=== PATIENT | female | born 1975 | race Caucasian/White ===

== ENCOUNTER 2022-07-25 20:01 | Emergency (ER) | payer SELFPAY ==
[~2022-07-25] VITALS: Ht 162.6 cm; Wt 90.7 kg
[2022-07-25] MEDS ORDERED: METHYLPREDNISOLONE SOD SUCC 125 MG/2ML VIAL IV STA (20:19)
[2022-07-25] MEDS ORDERED: ALBUTEROL/IPRATROPIUM 3 ML NEB NEB STA (20:19)
[2022-07-25] MEDS ORDERED: ALBUTEROL/IPRATROPIUM 3 ML NEB ONE (20:40)
[2022-07-25] MEDS ORDERED: METHYLPREDNISOLONE SOD SUCC 125 MG/2ML VIAL ONE (20:40)
[2022-07-25] MEDS ORDERED: AZITHROMYCIN250 MG PO (21:19)
[2022-07-25] MEDS ORDERED: PREDNISONE20 MG PO (21:19)
[2022-07-25] MEDS ORDERED: VENTOLIN HFA18 GM INH (21:19)
== END 2022-07-25 22:04 | disposition home or self-care (01) ==
LOC: FSED 20:17
DX: R05.9 Cough, unspecified (principal); J40 Bronchitis, not specified as acute or chronic; F17.210 Nicotine dependence, cigarettes, uncomplicated
CPT/HCPCS: 80053; 85025; 93005; 99283; J2930